=== PATIENT | male | born 1965 | race Caucasian/White ===

== ENCOUNTER 2020-09-10 10:22 | Emergency (ER) | payer BC ==
[~2020-09-10] VITALS: Ht 172.7 cm; Wt 80.9 kg
[2020-09-10 10:31] VITALS: BP 130/88
== END 2020-09-10 11:09 | disposition home or self-care (01) ==
LOC: ER 10:22
DX: J02.9 Acute pharyngitis, unspecified (principal); Z20.822 Contact with and (suspected) exposure to COVID-19; B34.9 Viral infection, unspecified; R05 Cough; R51.9 Headache, unspecified; Z88.8 Allergy status to other drugs, medicaments and biological substances
CPT/HCPCS: 36415; 87635; 99283